=== PATIENT | male | born 1935 | race Caucasian/White ===

== ENCOUNTER 2022-08-05 21:12 | Inpatient (IN) ==
[2022-08-06] MEDS ORDERED: HYDROcodone/Acetamin 10/325 TAB (NF) PO PRN (00:26)
[2022-08-06] MEDS ORDERED: Ondansetron 4 mg VIAL 2 MG/ML 2 ml VIAL IV PRN (00:31)
[2022-08-06] MEDS ORDERED: Lactated Ringers 1000 ml BAG 1,000 ML IV SCH (01:00)
[2022-08-06] MEDS ORDERED: Dextrose 50% Syringe 50 ml 25 GM/50 ML SYRINGE IV PUSH PRN (03:33)
[2022-08-06] MEDS: Acetaminophen IV 1 GM/100ML 1,000 MG/100 ML BAG IV PRN (03:45)
[2022-08-06] MEDS: Morphine 2 MG/ML SYRINGE IV PRN ×2 (04:33→19:34)
[2022-08-06 05:23] LABS: ABS Basophils 0.1 10^3/ul (0-0.2); ABS Eosinophils 0.1 10^3/ul (0-0.6); ABS Lymphocytes 1.2 10^3/ul (1.0-4.8); ABS Monocytes 0.6 10^3/ul (0-0.8); ABS Neutrophils 5.5 10^3/ul (1.5-7.7); Eosinophil % 1.4 %; Hematocrit 36 % (42-52); Hemoglobin 11.9 g/dL (14.0-18.0); Lymphocyte % 16.6 %; Mean Corpuscular HGB Conc 33 g/dL (31-36); Mean Corpuscular Hemoglobin 31 pg (27-31); Mean Corpuscular Volume 93 fL (80-94); Mean Platelet Volume 9.6 fL (7.4-10.4); Platelet Count 145 10^3/uL (150-450); Red Blood Count 3.86 10^6 /uL (4.18-5.48); Red Cell Distribution Width 15 % (10-15); White Blood Count 7.5 10^3/uL (3.5-10.8)
[2022-08-06 05:28] LABS: INR 1.21 (0.89-1.11)
[2022-08-06 05:48] LABS: Albumin 3.3 g/dL (3.2-5.2); Albumin/Globulin Ratio 1.4 (1-3); Calcium 8.8 mg/dL (8.6-10.3); Globulin 2.4 g/dL (2-4); Potassium 3.5 mmol/L (3.5-5.0); Total Protein 5.7 g/dL (6.4-8.9); eGFR CKD-EPI 65.7 (>60)
[2022-08-06] MEDS: Enoxaparin 100 MG/ML SYR SUBCUT SCH ×2 (06:05→17:44)
[2022-08-06] MEDS: Tiotropium Brom/Olodaterol MDI INH SCH (07:32)
[2022-08-06] MEDS: Insulin GLARGINE 100 un/ml 10 ml VIAL SUBCUT SCH (17:45)
[2022-08-06] MEDS: HYDROcodone/Acetamin 10/325 TAB (NF) PO PRN (18:07)
[2022-08-06] MEDS ORDERED: NS 0.9% 250 ml 250 ML IV SCH (23:55)
[2022-08-07] MEDS: Enoxaparin 100 MG/ML SYR SUBCUT SCH ×2 (06:06→22:23)
[2022-08-07 06:13] LABS: ABS Eosinophils 0.1 10^3/ul (0-0.6); ABS Lymphocytes 1.2 10^3/ul (1.0-4.8); ABS Monocytes 0.9 10^3/ul (0-0.8); ABS Neutrophils 6.7 10^3/ul (1.5-7.7); Eosinophil % 0.7 %; Hematocrit 30 % (42-52); Hemoglobin 9.9 g/dL (14.0-18.0); Lymphocyte % 13.2 %; Mean Corpuscular HGB Conc 33 g/dL (31-36); Mean Corpuscular Hemoglobin 31 pg (27-31); Mean Corpuscular Volume 93 fL (80-94); Mean Platelet Volume 9.1 fL (7.4-10.4); Platelet Count 143 10^3/uL (150-450); Red Blood Count 3.25 10^6 /uL (4.18-5.48); Red Cell Distribution Width 15 % (10-15); White Blood Count 8.9 10^3/uL (3.5-10.8)
[2022-08-07 06:51] LABS: Calcium 8.6 mg/dL (8.6-10.3); Magnesium 1.7 mg/dL (1.9-2.7); Potassium 3.6 mmol/L (3.5-5.0); eGFR CKD-EPI 72.8 (>60)
[2022-08-07] MEDS: Tiotropium Brom/Olodaterol MDI INH SCH (07:28)
[2022-08-07] MEDS ORDERED: Morphine 10 MG/ML VIAL (1 ml) ONE (12:16)
[2022-08-07] MEDS ORDERED: Propofol 10 MG/ML 20 ML BTL ONE (12:16)
[2022-08-07] MEDS ORDERED: Midazolam 2 mg/2 ml VIAL 1 mg/ml 2 ml VIAL (2 mg) ONE (12:31)
[2022-08-07] MEDS ORDERED: ceFAZolin 2 GM in NS PREMIX 2 GM/100 ML BAG IVPB ONE (12:48)
[2022-08-07] MEDS ORDERED: fentaNYL 100 mcg/2 ml 50 MCG/ML VIAL ONE (12:57)
[2022-08-07 17:08] LABS: Hematocrit 35 % (42-52); Hemoglobin 11.5 g/dL (14.0-18.0)
[2022-08-07] MEDS ORDERED: NS 0.9% 500 ml BAG 500 ML IV ONE (19:25)
[2022-08-07] MEDS: Insulin GLARGINE 100 un/ml 10 ml VIAL SUBCUT SCH (19:33)
[2022-08-07] MEDS: ceFAZolin 1 GM X 3 DOSES POST-OP Q8H (AddVan) IVPB SCH (22:34)
[2022-08-08] MEDS: Morphine 2 MG/ML SYRINGE IV PRN ×3 (01:57→17:28)
[2022-08-08] MEDS: ceFAZolin 1 GM X 3 DOSES POST-OP Q8H (AddVan) IVPB SCH ×2 (06:13→12:58)
[2022-08-08 06:35] LABS: ABS Eosinophils 0.2 10^3/ul (0-0.6); ABS Lymphocytes 0.8 10^3/ul (1.0-4.8); ABS Monocytes 0.8 10^3/ul (0-0.8); ABS Neutrophils 7.3 10^3/ul (1.5-7.7); Eosinophil % 1.7 %; Hematocrit 31 % (42-52); Hemoglobin 10.2 g/dL (14.0-18.0); Lymphocyte % 9.1 %; Mean Corpuscular HGB Conc 33 g/dL (31-36); Mean Corpuscular Hemoglobin 30 pg (27-31); Mean Corpuscular Volume 91 fL (80-94); Mean Platelet Volume 9.3 fL (7.4-10.4); Nucleated Red Blood Cells % 0.1; Platelet Count 125 10^3/uL (150-450); Red Blood Count 3.37 10^6 /uL (4.18-5.48); Red Cell Distribution Width 16 % (10-15); White Blood Count 9.1 10^3/uL (3.5-10.8)
[2022-08-08 06:51] LABS: Calcium 8.1 mg/dL (8.6-10.3); Magnesium 1.7 mg/dL (1.9-2.7); Potassium 3.4 mmol/L (3.5-5.0); eGFR CKD-EPI 68.7 (>60)
[2022-08-08] MEDS: HYDROcodone/Acetamin 10/325 TAB (NF) PO PRN (08:46)
[2022-08-08] MEDS: Tiotropium Brom/Olodaterol MDI INH SCH (09:17)
[2022-08-08] MEDS: Insulin GLARGINE 100 un/ml 10 ml VIAL SUBCUT SCH (17:40)
[2022-08-09 06:26] LABS: ABS Eosinophils 0.1 10^3/ul (0-0.6); ABS Lymphocytes 0.8 10^3/ul (1.0-4.8); ABS Monocytes 0.6 10^3/ul (0-0.8); ABS Neutrophils 5.4 10^3/ul (1.5-7.7); Hematocrit 30 % (42-52); Hemoglobin 10.2 g/dL (14.0-18.0); Mean Corpuscular HGB Conc 34 g/dL (31-36); Mean Corpuscular Hemoglobin 32 pg (27-31); Mean Corpuscular Volume 93 fL (80-94); Mean Platelet Volume 9.5 fL (7.4-10.4); Platelet Count 137 10^3/uL (150-450); Red Blood Count 3.21 10^6 /uL (4.18-5.48); Red Cell Distribution Width 15 % (10-15); White Blood Count 6.9 10^3/uL (3.5-10.8)
[2022-08-09 06:55] LABS: Calcium 8.2 mg/dL (8.6-10.3); Magnesium 1.8 mg/dL (1.9-2.7); Potassium 3.8 mmol/L (3.5-5.0)
[2022-08-09] MEDS: Tiotropium Brom/Olodaterol MDI INH SCH (08:22)
[2022-08-09] MEDS ORDERED: Magnesium Sulfate 2 gm BAG 2 GM/50 ML BAG IVPB ONE (08:37)
[2022-08-09] MEDS ORDERED: Furosemide 40 mg/4 ml IV VIAL IV SLOW PU ONE (09:06)
[2022-08-09] MEDS ORDERED: Psyllium PAK PO PRN (10:32)
[2022-08-09] MEDS: HYDROcodone/Acetamin 10/325 TAB (NF) PO PRN ×2 (12:31→20:36)
[2022-08-09] MEDS ORDERED: Furosemide 40 mg/4 ml IV VIAL IV ONE (14:00)
[2022-08-09] MEDS: Insulin GLARGINE 100 un/ml 10 ml VIAL SUBCUT SCH (17:12)
[2022-08-09] MEDS: Nystatin TOP POWDER 15 GM BTL TOPICAL SCH (20:48)
[2022-08-10 06:34] LABS: ABS Eosinophils 0.2 10^3/ul (0-0.6); ABS Lymphocytes 0.7 10^3/ul (1.0-4.8); ABS Monocytes 0.6 10^3/ul (0-0.8); ABS Neutrophils 4.8 10^3/ul (1.5-7.7); Eosinophil % 3.4 %; Hematocrit 34 % (42-52); Hemoglobin 11.2 g/dL (14.0-18.0); Mean Corpuscular HGB Conc 33 g/dL (31-36); Mean Corpuscular Hemoglobin 31 pg (27-31); Mean Corpuscular Volume 93 fL (80-94); Mean Platelet Volume 9.6 fL (7.4-10.4); Platelet Count 191 10^3/uL (150-450); Red Blood Count 3.64 10^6 /uL (4.18-5.48); Red Cell Distribution Width 15 % (10-15); White Blood Count 6.3 10^3/uL (3.5-10.8)
[2022-08-10 06:49] LABS: Calcium 8.2 mg/dL (8.6-10.3); Potassium 3.1 mmol/L (3.5-5.0); eGFR CKD-EPI 84.4 (>60)
[2022-08-10] MEDS: Tiotropium Brom/Olodaterol MDI INH SCH (07:05)
[2022-08-10] MEDS ORDERED: Potassium Chloride LIQUID 20 MEQ/15 ML LIQUID PO ONE (08:23)
[2022-08-10] MEDS ORDERED: Digoxin IV 0.5 MG/2 ML AMP (0.25 MG/ML) IV SLOW PU ONE (08:58)
[2022-08-10] MEDS ORDERED: Dextrose 50% Syringe 50 ml 25 GM/50 ML SYRINGE IV PUSH PRN (09:00)
[2022-08-10] MEDS ORDERED: Polyethylene Glycol 3350 17 GM PACKET PO PRN (09:08)
[2022-08-10] MEDS: Nystatin TOP POWDER 15 GM BTL TOPICAL SCH ×2 (09:08→20:52)
[2022-08-10] MEDS: HYDROcodone/Acetamin 10/325 TAB (NF) PO PRN ×2 (09:09→16:42)
[2022-08-10 09:54] LABS: Vitamin D Total 25(OH) 35.1 ng/mL (20-50)
[2022-08-10] MEDS: Insulin GLARGINE 100 un/ml 10 ml VIAL SUBCUT SCH (17:24)
[2022-08-11] MEDS: HYDROcodone/Acetamin 10/325 TAB (NF) PO PRN (06:08)
[2022-08-11] MEDS: Acetaminophen IV 1 GM/100ML 1,000 MG/100 ML BAG IV PRN (06:08)
[2022-08-11 06:21] LABS: ABS Eosinophils 0.3 10^3/ul (0-0.6); ABS Lymphocytes 0.9 10^3/ul (1.0-4.8); ABS Monocytes 0.6 10^3/ul (0-0.8); ABS Neutrophils 4.8 10^3/ul (1.5-7.7); Eosinophil % 3.9 %; Hematocrit 30 % (42-52); Hemoglobin 10.5 g/dL (14.0-18.0); Lymphocyte % 14.2 %; Mean Corpuscular HGB Conc 35 g/dL (31-36); Mean Corpuscular Hemoglobin 32 pg (27-31); Mean Corpuscular Volume 92 fL (80-94); Mean Platelet Volume 9.1 fL (7.4-10.4); Platelet Count 239 10^3/uL (150-450); Red Blood Count 3.29 10^6 /uL (4.18-5.48); Red Cell Distribution Width 16 % (10-15); White Blood Count 6.6 10^3/uL (3.5-10.8)
[2022-08-11 06:41] LABS: Calcium 8.3 mg/dL (8.6-10.3); Digoxin 0.8 ng/ml (0.8-2.0); Magnesium 1.8 mg/dL (1.9-2.7); Potassium 3.4 mmol/L (3.5-5.0); eGFR CKD-EPI 89.6 (>60)
[2022-08-11] MEDS: Tiotropium Brom/Olodaterol MDI INH SCH (07:16)
[2022-08-11] MEDS ORDERED: Potassium Chloride LIQUID 20 MEQ/15 ML LIQUID PO ONE (07:25)
[2022-08-11] MEDS ORDERED: Magnesium Sulfate 2 gm BAG 2 GM/50 ML BAG IVPB ONE (07:25)
[2022-08-11] MEDS: Nystatin TOP POWDER 15 GM BTL TOPICAL SCH ×2 (08:33→20:15)
[2022-08-11] MEDS: Insulin GLARGINE 100 un/ml 10 ml VIAL SUBCUT SCH (17:34)
[2022-08-12 07:11] LABS: Calcium 8.2 mg/dL (8.6-10.3); Magnesium 1.8 mg/dL (1.9-2.7); Potassium 3.8 mmol/L (3.5-5.0); eGFR CKD-EPI 87.3 (>60)
[2022-08-12] MEDS: Tiotropium Brom/Olodaterol MDI INH SCH (07:40)
[2022-08-12] MEDS: Morphine 2 MG/ML SYRINGE IV PRN (08:44)
[2022-08-12] MEDS: Nystatin TOP POWDER 15 GM BTL TOPICAL SCH ×2 (12:12→20:16)
[2022-08-12] MEDS: Insulin GLARGINE 100 un/ml 10 ml VIAL SUBCUT SCH (17:14)
[2022-08-12] MEDS: HYDROcodone/Acetamin 10/325 TAB (NF) PO PRN (20:11)
[2022-08-13 06:32] LABS: Calcium 8.1 mg/dL (8.6-10.3); Potassium 3.9 mmol/L (3.5-5.0)
[2022-08-13] MEDS: Tiotropium Brom/Olodaterol MDI INH SCH (07:12)
[2022-08-13] MEDS: Nystatin TOP POWDER 15 GM BTL TOPICAL SCH (08:10)
[2022-08-13] MEDS: Morphine 2 MG/ML SYRINGE IV PRN (12:55)
[2022-08-13 14:23] LABS: Rapid COVID-19 Molecular Undetected (Undetected)
[2022-08-13 16:28] VITALS: BP 140/57
== END 2022-08-13 16:25 | DRG 481 ==
LOC: EDSEX → ED 21:12 → EDHOLD 08-06 00:13 → MERGE 08-06 00:13 → SUATTDRO 08-06 00:13 → MEDTELE 08-06 03:15
PROVIDERS: ADMIT Internal Medicine; ATTEND Internal Medicine